=== PATIENT | female | born 2000 | race Two or more races ===

== ENCOUNTER 2021-07-24 05:39 | Inpatient (IN) | payer MEDICAID, OTHER ==
[~2021-07-24] VITALS: Ht 147.3 cm; Wt 46.7 kg
[2021-07-24 06:48] LABS: BASOPHILS % (AUTO) 0.1 % (0.0-2.0); EOSINOPHILS % (AUTO) 0.2 % (1.0-6.0); HEMOGLOBIN 14.6 g/dL (12.0-16.0); LYMPHOCYTES # (AUTO) 1.2 K/uL (1.0-4.8); LYMPHOCYTES % (AUTO) 11.1 % (22.0-44.0); MEAN CORPUSCULAR HEMOGLOBIN 32.1 pg (26.0-34.0); MEAN CORPUSCULAR HGB CONC 34.7 G/dL (31.0-37.0); MEAN CORPUSCULAR VOLUME 93 fL (80-100); MONOCYTES # (AUTO) 0.5 K/uL (0.1-1.0); MONOCYTES % (AUTO) 5.2 % (2.0-9.0); NEUTROPHILS # (AUTO) 8.8 K/uL (1.8-7.7); NEUTROPHILS % (AUTO) 83.4 % (40.0-70.0); PLATELET COUNT (AUTO) 228 K/uL (150-450); RED BLOOD CELL COUNT(AUTO) 4.53 MIL/uL (4.00-5.20); RED CELL DISTRIBUTION WIDTH 12.6 % (11.5-14.5)
[2021-07-24 07:00] LABS: ANION GAP 11 mmol/L (8-16); CALCIUM, TOTAL 9.7 mg/dL (8.8-10.5); CARBON DIOXIDE 23 mmol/L (22-29); CHLORIDE 101 mmol/L (98-107); GLOMERULAR FILTR. RATE CALC > 60 mL/min (>60); GLUCOSE,RANDOM 78 mg/dL (70-110); POTASSIUM 3.7 mmol/L (3.5-5.1); SODIUM SERUM 135 mmol/L (136-145); UREA NITROGEN, BLOOD 11 mg/dL (7-18)
[2021-07-24 07:05] LABS: COVID AG,FIA SOURCE NASOPHARYNGEAL
[2021-07-24 07:13] LABS: ALANINE AMINOTRANSFERASE 25 U/L (12-78); ALBUMIN 4.6 g/dL (3.4-5.0); ALKALINE PHOSPHATASE 74 U/L (46-116); ASPARTATE AMINOTRANSFERASE 18 U/L (15-37); BILIRUBIN,TOTAL 0.9 mg/dL (0.1-1.0); HCG,QUANTITATIVE < 1 mIU/mL (0-6); TOTAL PROTEIN, SERUM 9.4 g/dL (6.4-8.2)
[2021-07-24] MEDS ORDERED: BACITRACIN 0.9 GM PACKET OINTMENT TP ONE (08:15)
[2021-07-24 13:31] LABS: AMPHET/METH SCREEN,URINE NEGATIVE (NEGATIVE); BARBITURATE SCREEN, URINE NEGATIVE (NEGATIVE); BENZODIAZEPINES SCREEN,URINE NEGATIVE (NEGATIVE); CANNABINOID SCREEN,URINE NEGATIVE (NEGATIVE); COCAINE SCREEN,URINE NEGATIVE (NEGATIVE); METHADONE SCREEN, URINE NEGATIVE (NEGATIVE); OPIATE SCREEN,URINE NEGATIVE (NEGATIVE); PHENCYCLIDINE SCREEN,URINE NEGATIVE (NEGATIVE)
[2021-07-24] MEDS ORDERED: ZOLPIDEM TARTRATE 10 MG TABLET PO PRN (15:00)
[2021-07-24] MEDS ORDERED: HALOPERIDOL 5 MG TABLET PO PRN (15:00)
[2021-07-24 19:15] VITALS: BP 116/61
[2021-07-25 05:51] VITALS: BP 109/62
[2021-07-25 08:02] VITALS: BP 104/68
[2021-07-25] MEDS: BACITRACIN 28 GM OINTMENT TP SCH ×2 (08:35→16:15)
[2021-07-25] MEDS ORDERED: PETROLATUM,WHITE 28 GM JELLY TP PRN (09:45)
[2021-07-25] MEDS ORDERED: LOPERAMIDE HCL 2 MG CAPSULE PO PRN (09:45)
[2021-07-25] MEDS ORDERED: ALBUTEROL SULFATE HFA 90 MCG/PUFF 8 GM INHALER IH PRN (09:45)
[2021-07-25] MEDS ORDERED: ACETAMINOPHEN 325 MG TABLET PO PRN (09:45)
[2021-07-25] MEDS ORDERED: ONDANSETRON HCL 4 MG TABLET PO PRN (09:45)
[2021-07-25] MEDS ORDERED: DOCUSATE SODIUM 100 MG CAPSULE PO PRN (09:45)
[2021-07-25] MEDS ORDERED: GuaiFENesin/D-METHORPHAN [SUGAR-FREE] 200-20MG/10 ML SYRUP UDCUP PO PRN (09:45)
[2021-07-25] MEDS ORDERED: CloNIDine HCL 0.1 MG TABLET PO PRN (09:45)
[2021-07-25] MEDS ORDERED: MAGNESIUM HYDROXIDE SUSPENSION 30 ML UDCUP PO PRN (09:45)
[2021-07-25] MEDS ORDERED: NICOTINE 14 MG/24 HOUR PATCH TD PRN (09:45)
[2021-07-25] MEDS ORDERED: MAG HYDROX/AL HYDROX/SIMETH ES 30 ML SUSPENSION UDCUP PO PRN (09:45)
[2021-07-25] MEDS ORDERED: IBUPROFEN 400 MG TABLET PO PRN (09:45)
[2021-07-25 16:03] VITALS: BP 98/60
[2021-07-25] MEDS: FLUoxetine HCL 20 MG CAPSULE PO SCH (18:14)
[2021-07-25] MEDS: LORazepam 2 MG TABLET PO PRN (20:16)
[2021-07-26 00:32] VITALS: BP 101/62
[2021-07-26 08:12] VITALS: BP 119/64
[2021-07-26] MEDS: FLUoxetine HCL 20 MG CAPSULE PO SCH (08:19)
[2021-07-26] MEDS: BACITRACIN 28 GM OINTMENT TP SCH ×2 (08:26→16:14)
[2021-07-26 16:02] VITALS: BP 99/65
[2021-07-26] MEDS: LORazepam 2 MG TABLET PO PRN (18:17)
[2021-07-27 00:11] VITALS: BP 103/62
[2021-07-27 08:20] VITALS: BP 104/62
[2021-07-27] MEDS: BACITRACIN 28 GM OINTMENT TP SCH ×2 (08:25→16:11)
[2021-07-27] MEDS: FLUoxetine HCL 20 MG CAPSULE PO SCH (08:25)
[2021-07-27 16:03] VITALS: BP 103/64
[2021-07-27] MEDS: LORazepam 2 MG TABLET PO PRN (17:33)
[2021-07-28 00:22] VITALS: BP 102/62
[2021-07-28 08:05] VITALS: BP 130/79
[2021-07-28] MEDS: FLUoxetine HCL 20 MG CAPSULE PO SCH (08:10)
[2021-07-28] MEDS: BACITRACIN 28 GM OINTMENT TP SCH (08:11)
[2021-07-28] MEDS ORDERED: MULTIVITAMINS WITH MINERALS, THERAPEUTIC TABLET PO SCH (09:00)
[2021-07-28] MEDS ORDERED: FLUO20CA36 PO (10:58)
[2021-07-28] MEDS ORDERED: PROZ20 PO (11:04)
== END 2021-07-28 13:51 | disposition home or self-care (01) | DRG 754 ==
LOC: EMS 05:40 → B2S 15:35
PROVIDERS: ADMIT Psychiatry & Neurology Child & Adolescent Psychiatry; ATTEND Psychiatry & Neurology Child & Adolescent Psychiatry
DX: F32.9 Major depressive disorder, single episode, unspecified (principal); E87.1 Hypo-osmolality and hyponatremia; R45.851 Suicidal ideations; F10.10 Alcohol abuse, uncomplicated; F41.9 Anxiety disorder, unspecified; Z20.822 Contact with and (suspected) exposure to COVID-19; Y90.9 Presence of alcohol in blood, level not specified
CPT/HCPCS: 80053; 84702; 85025; 99285; G0480